=== PATIENT | female | born 1955 | race Caucasian/White ===

== ENCOUNTER 2020-12-07 12:53 | Emergency (ER) | payer OTHER ==
[~2020-12-07] VITALS: Ht 167.6 cm; Wt 47.2 kg
[~2020-12-07 12:53] MED LIST: LORTAB 10 MG-3473 ML PO; MOBIC15 MG PO; PROAIR HFA8.5 GM IH; PROVENTIL HFA6.7 G1 INH
[2020-12-07 12:58] VITALS: BP 139/70
== END 2020-12-07 14:54 | disposition left against medical advice (07) ==
LOC: ER 12:53
DX: H61.23 Impacted cerumen, bilateral (principal); Z87.891 Personal history of nicotine dependence